=== PATIENT | female | born 1945 | race American Indian/Alaskan Native ===

== ENCOUNTER 2020-05-19 05:47 | Day surgery (SDC) | payer MEDICARE, OTHER ==
[2020-05-19] MEDS ORDERED: LACTATED RINGERS 1,000 ML IV SCH (06:00)
[2020-05-19] MEDS ORDERED: BACTERIOSTATIC SODIUM CHLORIDE 0.9% 30 ML VIAL INFILTRATI ONE (06:30)
[2020-05-19] MEDS ORDERED: FAMOTIDINE 20 MG/2 ML INJ IV ONE (07:17)
[2020-05-19] MEDS ORDERED: FAMOTIDINE 20 MG/2 ML INJ IV NR (07:20)
--- NOTE | 2020-05-19 07:20 | Anesthesia Consultation ---
Anesthesia Consult and Med Hx Date of service: 05/19/20 - Airway Anesthetic Teeth Evaluation: Partials (upper and lower) ROM Head & Neck: Adequate Mental/Hyoid Distance: Adequate Mallampati Class: Class II Intubation Access Assessment: Probably Good - Pre-Operative Health Status ASA Pre-Surgery Classification: ASA2 Proposed Anesthetic Plan: General - Pulmonary Hx Smoking: Yes (3 cig/day x 50 years) Hx Asthma: No COPD: No Hx Pneumonia: No Hx Sleep Apnea: No (TESTED [ NEG ] FOR TEST SNORES) - Cardiovascular System Hx Hypertension: No Hx Heart Attack/AMI: No Hx Pacemaker: No Hx Internal Defibrillator: No Hx Heart Murmur: No - Central Nervous System Hx Seizures: No Hx Back Pain: Yes (NUMBNESS LEFT LEG OCC.) Hx Psychiatric Problems: No - Endocrine Hx Renal Disease: Yes (kidney stone, overactive bladder) Hx End Stage Renal Disease: No Hx Cirrhosis: No Hx Liver Disease: No - Hematic Hx Anemia: No Hx Sickle Cell Disease: No - Other Systems Hx Alcohol Use: Yes (OCC.) Hx Substance Use: No Hx Cancer: No
--- NOTE | 2020-05-19 07:20 | Anesthesia Day of Surgery ---
Anesthesia Day of Surgery - Day of Surgery Patient Examined: Yes Patient H&P Reviewed: Yes Patient is NPO: Yes
[2020-05-19] MEDS ORDERED: propofoL 200 MG/20 ML VIAL IV ONE (07:22)
[2020-05-19] MEDS ORDERED: HYDROmorphone 1 MG/1 ML INJ ONE (07:22)
[2020-05-19] MEDS ORDERED: LIDOCAINE MPF (2%) 20 MG/1 ML VIAL 5 ML ONE (07:22)
[2020-05-19] MEDS ORDERED: ceFAZolin/STERILE WATER 2 GM/20 ML SYRINGE IV NR (08:00)
[2020-05-19] MEDS ORDERED: ONDANSETRON 4 MG/2 ML INJ ONE (08:53)
--- NOTE | 2020-05-19 09:40 | Post Operative Note ---
Date of procedure: 05/19/20 Pre-op diagnosis: r renal stone Post-op diagnosis: same Findings: as above Procedure: r eswl Anesthesia: CLAY Surgeon: ZACH NAVA Estimated blood loss: none Pathology: none Condition: stable Disposition: PACU
--- NOTE | 2020-05-19 09:42 | Discharge Summary ---
Short Stay Discharge Plan Activity: other Weight Bearing Status: Full Weight Bearing (no straining) Diet: low fat, low cholesterol, low salt Special Instructions: other (inc fluids ) Follow up with: PRIMARY CARE, [Primary Care Provider] - 7 Days CAS MEDINA MD [Staff Physician] - 7 Days
--- NOTE | 2020-05-19 10:01 | Operative Report ---
PREOPERATIVE DIAGNOSIS: Right renal stone. POSTOPERATIVE DIAGNOSIS: Right renal stone. PROCEDURE: Right __ lithotripsy. SURGEON: Dr. Vasques. ANESTHESIA: General. FINDINGS: This is a woman with previous stones. She has recently seen Dr. Vega, had intermittent flank pain. She now presents for treatment of the right stone. It is approximately 1-1.2 cm. DESCRIPTION OF PROCEDURE: The patient was brought to the operating room and placed on the operating room table. It is well localized both the AP and oblique image. Shocks were begun at 1 kV, increased to 8 kV. We had to go slowly because she was having occasional PVCs. Total of 2500 shocks were given. Stone clearly got bigger, but still will need some more work, I suspect. The patient tolerated the procedure well and brought to recovery room in stable condition. 2500 shocks were given. JOB# [id number] YOSELYN/NICOLE
--- NOTE | 2020-05-19 10:12 | Post Anesthesia Evaluation ---
- Post Anesthesia Evaluation Patient Participated: Yes Airway Patent: Yes Stable Respiratory Function: Yes Nausea/Vomiting: No Temp > 96.8F: Yes Pain Manageable: Yes Adequeate Hydration: Yes Anesthesia Complications: No
[2020-05-19 10:47] VITALS: BP 147/72
== END 2020-05-19 10:40 | disposition home or self-care (01) ==
LOC: OR 05:47
PROVIDERS: ATTEND Urology
DX: N20.0 Calculus of kidney (principal); Z20.822 Contact with and (suspected) exposure to COVID-19; F17.210 Nicotine dependence, cigarettes, uncomplicated; E78.00 Pure hypercholesterolemia, unspecified; M19.90 Unspecified osteoarthritis, unspecified site; Z79.899 Other long term (current) drug therapy; Z79.82 Long term (current) use of aspirin; Z90.710 Acquired absence of both cervix and uterus; Z98.891 History of uterine scar from previous surgery; Z72.89 Other problems related to lifestyle; Z98.890 Other specified postprocedural states
CPT/HCPCS: 50590; J0690; J1170; J2405; J2704; J7120; U0003